=== PATIENT | female | born 1970 | race Caucasian/White ===

== ENCOUNTER 2017-04-02 13:25 | Emergency (ER) | payer OTHER ==
[~2017-04-02] VITALS: Ht 177.8 cm; Wt 127.3 kg
[2017-04-02 13:51] VITALS: BP 152/90; PULSE 85; RESP 16; O2SAT 97
--- NOTE | 2017-04-02 14:19 | ED.REPORT ---
HPI-Rash / Abscess Date of Service Apr 02, 2017 ED Provider: Yury Cotton MD The patient is a 46 year old female who presents to the emergency department complaining of a draining cyst located on the back of her neck. The cyst was initially very small and remained that size for some time. A few weeks ago the cyst increased in size and became more painful. Last night the cyst started to drain purulent material. She was recently seen by Dr. Scales and was scheduled to have surgery today but this was postponed until Sunday. She presents to the ED today because of the drainage and increased pain. She has also noticed nausea and a headache. She denies fever, chills or vomiting. Nursing Notes Stated Complaint: CYST ON BACK OF NECK Chief Complaint: Skin Rash/Abscess Nursing Notes Reviewed: Yes Allergies: Coded Allergies: No Known Allergies (Unverified , 04/02/17) General Time Seen by MD: 14:19 Chief Complaint Tender/swollen area Hx Obtained From: Patient Arrived By: Walk-in Onset Occurred: More than a week ago... Symptom Duration: Since onset Location: : Neck Quality: Painful Severity: Current: Mild Severity: Maximum: Moderate Pertinent Negative: Pt denies other symptoms Recent Healthcare: No recent hospitalization Similar Sx Previous: Yes Past Medical History Past Medical History Asthma Past Surgical History Breast reduction Family History Noncontributory Smoking History Never Smoker Social History Alcohol Use: "Social" Other Social History: Good social support, Local resident Ambulatory Status Independent Review of Systems Review of Systems Note: +purulent drainage Constitutional: Denies: Chills, Fever GI: Reports: Nausea, Denies: Vomiting Skin: Reports Rash, Reports Swelling Complete sys rev & neg: except as marked. Neurologic: Reports: Headache Physical Exam Initial Vital Signs Vital Signs (First) Date Time Temp Pulse Resp B/P Pulse Ox O2 Delivery O2 Flow Rate FiO2 04/02/17 13:51 37.6 85 16 152/90 97 Room Air Initial VS: Reviewed Head / Eyes: Atraumatic, Normocephalic, PERRL ENT: Mucous membranes moist, Conjunctiva normal, No scleral icterus Neck: Supple, Non-tender, Full range of motion Respiratory: No respiratory distress Extremities: No swelling Neurologic: Alert, Oriented, Nonfocal Psychiatric: Mood/affect normal, Behavior normal, Normal thought content General/Constitutional: Awake, Alert, Cooperative Skin: Color NL, Warm, Dry Rash / Lesion Notes: There is a small sebaceous cyst located to the posterior neck Procedures Incision & Drainage Abscess Time: 14:44 Procedure Performed by: ED physician Consent / Setup / Site Prep: Consent from patient, Time-out performed, Hand hygiene observed, Stand sterile technique Location of Abscess: posterior neck Skin Preparation Agent: Hibiclens - Chlorhexidine Local Anesthesia: Lidocaine w epi 1% Incised Abscess with Scalpel: #11 Pus Drained: Purulent discharge (small amount), Serosanguinous (moderate amount) Irrigation: Yes, 150 cc Post-Procedure / Complications: Packing placed, Dressing applied, No complications, Condition improved, Tolerated procedure well, Patient stable Re-Eval/Medical Decision Source of Hx: Old records Re-Evaluation/Progress : Time of Eval: 14:43 Re-Evaluation/Progress Note: Discussed plan for incision and drainage, and discharge with outpatient followup. Consultation : Referral / Consult Name: Kelsey Scales MD Consulted With: Surgeon Call Returned at: 14:39 Note: Discussed the patient's case with the on-call surgeon. He would like us to incise and drain the cyst here. He will see her in clinic. Counseled Regarding: Diagnosis, Need for follow-up, When/why to return to ED Discharge & Departure Impression: Primary Impression: Sebaceous cyst Disposition: Home Discharge Condition All VS Reviewed: Yes Condition: Stable Patient Instructions: Cyst (ED) Additional Instructions: Thank you for entrusting us with your care today. We were able to express a moderate amount of material from the cyst. It is okay to bathe as you normally would. Go home today wash, shower, and wash your hair. Make sure not to rub the area. Apply some type of bandage after you shower. You will need to remove the gauze late tomorrow. Call Dr. Scales's office today to reschedule your appointment for next week. Return to the emergency department for any new or concerning symptoms. Referrals: Kelsey Scales MD Attestation Portions of this note were transcribed by Cheyanne Arauz. I, Dr. Cotton personally performed the history, physical exam and medical decision-making; I reviewed and confirmed the accuracy of the information in the transcribed note. Signed by: Homar Chowdhury, 04/02/2017 at 1530. copies to: Kelsey Scales MD, Kirk H MD Apr 02, 2017 14:19 Davonte,Cheyanne Piper Apr 02, 2017 14:32
[2017-04-02 15:09] VITALS: BP 135/91; PULSE 78; RESP 14; O2SAT 96
[2017-04-02 15:23] VITALS: BP 135/91; PULSE 78; RESP 14; O2SAT 96
== END 2017-04-02 15:11 | disposition home or self-care (01) ==
LOC: SED 13:25
DX: L72.3 Sebaceous cyst (principal); R11.0 Nausea; R51 Headache; J45.909 Unspecified asthma, uncomplicated